=== PATIENT | male | born 1995 | race Two or more races ===

== ENCOUNTER 2025-01-30 16:58 | Emergency (ER) | payer MEDICAID, SELFPAY ==
[2025-01-30 16:59] VITALS: BMI 29.8
--- NOTE | 2025-01-30 17:18 | XR_ITS ---
Examination: PA lateral chest 2 views TECHNIQUE: Upright PA and lateral chest 2 views Date and time: January 30, 2025 1732 hours INDICATIONS: Left-sided chest pain beginning a days ago. FINDINGS: Normal heart size. Lungs are clear. The osseous structures are intact. IMPRESSION: No active disease.
--- NOTE | 2025-01-30 17:18 | EKG_ITS ---
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
--- NOTE | 2025-01-30 17:19 | PD.EDRME ---
Rapid Medical Screening Exam [facility] Arrival date/time: 01/30/25 16:58 29-year-old male with no known medical history presents to the emergency room with a chief complaint of sternal chest pain and palpitations that have been going on for the last 2 weeks but in the last 2 days have progressively gotten worse I have greeted and performed a focused initial assessment of this patient. A comprehensive ED assessment and evaluation of the patient, analysis of all test results, and completion of the medical decision making process will be conducted by additional ED providers. Chief Complaint: Chest Pain Vital signs reviewed by provider: Yes
[2025-01-30 17:25] VITALS: BP 124/81; PULSE 82; RESP 17; TEMP 37.3; O2SAT 98
[2025-01-30 18:20] LABS: Collection Type, Urine Clean Catch
[2025-01-30 18:24] LABS: Basophils # (Auto) 0.0 Thou/mm3 (0.0-0.2); Basophils % (Auto) 1 % (0-2.5); Eosinophils # (Auto) 0.4 Thou/mm3 (0.0-0.5); Eosinophils % (Auto) 5 % (0-10); Hematocrit 41.4 % (41.0-53.0); Hemoglobin 14.1 g/dL (13.5-16.0); Immature Granulocytes Auto 0.02 Thou/mm3 (0.00-0.00); Lymphocytes # (Auto) 2.0 Thou/mm3 (1.0-4.8); Lymphocytes % (Auto) 25 % (10-50); Mean Corpuscular HGB Conc 34.1 g/dl (31.0-37.0); Mean Corpuscular Hemoglobin 30.7 pg (25.0-35.0); Mean Corpuscular Volume 90 fL (80-100); Monocytes # (Auto) 0.6 Thou/mm3 (0.0-0.8); Monocytes % (Auto) 8 % (0-12); Neutrophils # (Auto) 4.9 Thou/mm3 (1.8-7.7); Neutrophils % (Auto) 61 % (37-80); Nucleated Red Blood Cell # 0.00 Thou/mm3 (0.00-0.00); Nucleated Red Blood Cell % 0 /100 WBC (0); Platelet Count 199 Thou/mm3 (140-440); RDW Standard Deviation 39.3 fL (35.1-43.9); Red Blood Count 4.59 Miln/mm3 (4.50-5.90); White Blood Count 8.0 Thou/mm3 (3.8-10.6)
[2025-01-30 18:29] LABS: Bilirubin,Urine Negative (Negative); Blood,Urine Negative (Negative); Clarity,Urine Clear (Clear/Hazy); Color,Urine Lt-Yellow (Lt Yel-Yel); Glucose, Urine Negative (Negative); Ketones,Urine Negative (Negative); Leukocyte Esterase,Urine Negative (Negative); Nitrite,Urine Negative (Negative); PH,Urine 6.0 (5.0-7.0); Protein,Urine Negative (Neg - Trace); RBC,Urine 5 /hpf (0-3); Specific Gravity,Urine 1.025 (1.001-1.035); Squamous Epithelial Cell,Urine < 1 /hpf (0-5); Urobilinogen,Urine Negative mg/dL (0.0-1.0); WBC,Urine < 1 /hpf (0-5)
[2025-01-30 18:35] LABS: Amphetamine/Methamp Scrn,U Negative (Negative); Barbiturate Screen,Urine Negative (Negative); Benzodiazepines Screen,Urine Negative (Negative); Benzoylecgonine Screen, Ur Negative (Negative); Fentanyl Screen,Urine Negative (Negative); Opiate Screen,Urine Negative (Negative); THC Screen,Urine Negative (Negative)
[2025-01-30 18:49] LABS: B-Type Natriuretic Peptide < 20 pg/mL (0-100)
[2025-01-30 18:50] LABS: Alanine Aminotransferase 26 U/L (10-49); Albumin, Serum 4.8 gm/dL (3.5-5.0); Albumin/Globulin Ratio 1.8 (1.2-2.2); Alkaline Phosphatase 76 U/L (46-116); Anion Gap 9 (7-16); Aspartate Amino Transferase 22 U/L (0-34); BUN/Creatinine Ratio 15 Ratio (12-20); Bilirubin,Total 0.4 mg/dL (0.3-1.2); Blood Urea Nitrogen 15 mg/dL (9-23); Calcium 9.5 mg/dL (8.3-10.6); Calcium (Corrected) 9.5 mg/dL (8.5-10.1); Carbon Dioxide 28.0 mMol/L (20.0-31.0); Chloride 105 mMol/L (98-107); Creatinine (Component) 1.0 mg/dL (0.6-1.3); Estimated Creatinine Clearance 120.8 mL/min (>60); Globulin 2.6 gm/dL (2.3-3.5); Glucose 99 mg/dL (74-106); Osmolality,Calculated 283 (275-295); Potassium 4.4 mMol/L (3.4-5.1); Sodium 142 mMol/L (136-145); Total Protein 7.4 gm/dL (5.7-8.2); Troponin I < 0.020 ng/mL (0.0-0.045); eGFR > 60 See Note
--- NOTE | 2025-01-30 19:07 | PD.EDCHEST ---
ED Chest Pain RME/HPI General Chief Complaint: Chest Pain Stated Complaint: CHEST PAIN TO LEFT SIDE RADIATING TO BACK Time Seen by Provider: 01/30/25 18:19 Arrival date/time: 01/30/25 16:58 RME / HPI RME / HPI narrative: 01/30/25 16:58 29-year-old male with no known medical history presents to the emergency room with a chief complaint of sternal chest pain and palpitations that have been going on for the last 2 weeks but in the last 2 days have progressively gotten worse I have greeted and performed a focused initial assessment of this patient. A comprehensive ED assessment and evaluation of the patient, analysis of all test results, and completion of the medical decision making process will be conducted by additional ED providers. This section includes all my notes and documentations, including HPI, PE, and ED course. Zach Park MD HPI: 29 y/o male presents c/o left-sided chest pain that radiates to the back x 8 days. Denies pain with deep inhalation, but endorses pain with movement. No other complaints. ROS: All negative except as documented in HPI. Physical Exam: General: Alert and oriented. No acute distress when remaining still. Eyes: Conjunctivae and lids clear. ENT: No nasal congestion. Neck: Supple. Heart: RRR. Lungs: No respiratory distress. Good air movement. No rhonchi, wheezing, rales. Chest: Palpation of the left torso reproduces his pain. Abdomen: Soft and nontender. Skin: Warm and dry. Neuro: Alert and oriented X 3. I reviewed all diagnostic test results: My interpretation of the EKG is sinus rhythm with no acute ST?T changes. My interpretation of the chest x-ray is: NAD. Blood tests and urine tests are unremarkable. At this point, diagnoses include: Chest wall pain. Recommended supportive care. Based on my best medical judgment, made decision no further evaluation or treatment indicated at this time. Patient understands and agrees to the discharge instructions customized and printed, see below. Discharge instructions from Dr. Park: 1. After extensive evaluation, there is no life-threatening condition.? Such as heart attack or pneumothorax (collapsed lung). 2. Your pain is originating from the chest wall and not from an internal organ.? The chest wall has many joints and muscles between the ribs, so sprains and strains are common.?? 3. Apply ice or heat if helpful.? Tylenol/ibuprofen as needed. For good hydration, increase oral fluid and maintain clear urine. If dark or yellow, increase oral fluid. 4. See a private doctor on 02/03/2025. To make sure there is no serious underlying heart condition, ask to help you get more tests for your heart that cannot be done here in the ER.? Such as Holter Monitor (cardiac monitoring at home from a day to even a month), heart stress test (on treadmill or with medication), echocardiogram (imaging of your heart structures), heart catherization (checking for blockages in your heart arteries), and a referral to see a [employer].? 5. Seek immediate medical care with worsening or with any concerns.?? Zach Park MD Related Data Allergies Allergy/AdvReac Type Severity Reaction Status Date / Time No Known Allergies Allergy Verified 01/30/25 17:02 Review of Systems Review of Systems Systems Reviewed: All systems reviewed, normal except as documented Past Medical History Social History SMOKING STATUS: Former smoker ED Exam Narrative Physical exam: Refer to HPI Course Course Course Narrative: CXR is ordered for determining the etiology of shortness of breath. Quality Measures none Orders Category Date Time Status EKG (ED ONLY) *Do not use* NOW Care 01/30/25 17:18 Completed EKG (ED Only) Stat Exams 01/30/25 17:18 Draft XR chest 2V Stat Exams 01/30/25 17:18 Completed B-Type Natriuretic Peptide Stat Lab 01/30/25 17:54 Completed CBC Stat Lab 01/30/25 17:54 Completed Comprehensive Metabolic Panel Stat Lab 01/30/25 17:54 Completed Drug Screen,Urine Stat Lab 01/30/25 18:03 Completed Troponin I Stat Lab 01/30/25 17:54 Completed Urinalysis Stat Lab 01/30/25 18:03 Completed Vital Signs Vital signs: Vital Signs Temperature 99.1 F 01/30/25 17:25 Pulse Rate 82 01/30/25 17:25 Respiratory Rate 17 01/30/25 17:25 Blood Pressure 124/81 01/30/25 17:25 Pulse Oximetry (%) 98 01/30/25 17:25 Oxygen Delivery Method Room Air 01/30/25 17:25 Chest Pain MDM Narrative MDM Narrative:: Scribe Attestation: I, Patricia Garcia, am scribing for and in the presence of Dr. Park. Provider Notation: Although this document has been carefully reviewed, there may still be some phonetic and other typographical errors.? These errors are purely grammatical due to imperfections in the software program and should not be construed in any way to? compromise the substance of the patient's medical care during this visit. Patient data External records reviewed:: [facility] previous records (No prior ED records available for review.) Clinical information provided by:: patient Social determinants that could affect healthcare access:: none Patient has the following chronic illnesses:: None reported How is presenting disease/condition affected by chronic disease/condition?: no chronic disease Evaluation data The following diagnostics were reviewed and interpreted by me:: lab results, radiology exam(s) and EKG tracing(s) Lab and/or radiology exams considered but not ordered:: None Interpretation Summary: I reviewed all diagnostic test results: My interpretation of the EKG is sinus rhythm with no acute ST?T changes. My interpretation of the chest x-ray is: NAD. Blood tests and urine tests are unremarkable. Medications / Prescriptions Medications or Prescriptions considered but not ordered:: None Medication administrations:: None Consultations Consultation(s) initiated? (list below): No Diagnosis Chest Pain Differential Diagnosis: fracture of rib, pneumothorax, stable angina, unstable angina pectoris, atypical chest pain, st elevation myocardial infarction, costochondritis, chest pain and biliary colic Most likely diagnosis given after review of the tests above:: Chest wall pain Admission Indicated Admission indicated?: not indicated Explain why admission is indicated or not indicated:: With no condition needing emergent intervention, there was no indication for admission. Admission Request Was there a request for admission?: No Disposition Plan Disposition Plan: Discharge Discharge Attestation Discharge Attestation: The patient and all family members were given an opportunity to ask questions and understood the discharge instructions. Discharge instructions specifically effects, indications for sooner follow up or return to the emergency department, and the expected course of current diagnosis. Patient condition: Stable Discharge Plan Plan Patient Disposition: HOME (Self Care) Prescriptions/Referrals Referrals: No Primary/Family,Physician [Primary Care Provider] - In 1 week Problem List Clinical Impression: Chest wall pain Patient/Caregiver Discharge Instructions Discharge Activity: activity as tolerated Education Materials: ED Chest Wall Strain (Child) Additional Instructions: Discharge instructions from Dr. Park: 1. After extensive evaluation, there is no life-threatening condition.? Such as heart attack or pneumothorax (collapsed lung). 2. Your pain is originating from the chest wall and not from an internal organ.? The chest wall has many joints and muscles between the ribs, so sprains and strains are common.?? 3. Apply ice or heat if helpful.? Tylenol/ibuprofen as needed. For good hydration, increase oral fluid and maintain clear urine. If dark or yellow, increase oral fluid. 4. See a private doctor on 02/03/2025. To make sure there is no serious underlying heart condition, ask to help you get more tests for your heart that cannot be done here in the ER.? Such as Holter Monitor (cardiac monitoring at home from a day to even a month), heart stress test (on treadmill or with medication), echocardiogram (imaging of your heart structures), heart catherization (checking for blockages in your heart arteries), and a referral to see a [employer].? 5. Seek immediate medical care with worsening or with any concerns.?? Instrucciones de ciaran del Dr. Park: 1. Tras lolita evaluaci?n exhaustiva, no se observa ninguna afecci?n que ponga en peligro la brandyn, malou un ataque card?aco o un neumot?rax (colapso pulmonar). 2. El dolor se origina en la pared tor?cica y no en un ?rgano interno. La pared tor?cica tiene muchas articulaciones y m?sculos entre las costillas, por lo que los esguinces y las distensiones son comunes. 3. Aplique hielo o calor si le resulta ?til. Tylenol/ibuprofeno seg?n sea necesario. Para lolita buena hidrataci?n, aumente la ingesta de l?quidos y mantenga la orina giulia. Si la orina es oscura o amarilla, aumente la ingesta de l?quidos. 4. Consulte con un m?dico particular el 02/03/2025. Para asegurarse de que no haya lolita afecci?n card?acacia subyacente grave, solicite ayuda para realizar m?s pruebas card?acas que no se pueden realizar en urgencias. Malou un monitor Holter (monitoreo card?aco en casa desde un d?a hasta un mes), lolita prueba de esfuerzo card?aco (en cinta o con medicaci?n), un ecocardiograma (im?genes de las estructuras del coraz?n), un cateterismo card?aco (para comprobar si hay obstrucciones en las arterias del coraz?n) y lolita derivaci?n a un cardi?logo. 5. Busque atenci?n m?dica inmediata si [place] estado empeora o tiene alguna inquietud. Print Language: Norwegian Stand Alone Forms: [employer]a Award Info., Patient Portal Info Letter
== END 2025-01-30 19:30 | disposition home or self-care (01) ==
PROVIDERS: Nurse Practitioner Family; Emergency Provider Emergency Medicine
DX: R07.89 Other chest pain (principal)
CPT/HCPCS: 36415; 71046; 80053; 80307; 81001; 83880; 84484; 85025; 93005; 99283

== ENCOUNTER 2025-02-02 11:33 | Emergency (ER) | payer MEDICAID, SELFPAY ==
[2025-02-02 11:58] VITALS: BP 143/73; PULSE 71; RESP 19; TEMP 37.1; O2SAT 99; BMI 24.8
--- NOTE | 2025-02-02 12:08 | XR_ITS ---
Examination: Abdomen AP single view Technique: AP portable supine abdomen, single view Exam date and time: February 02, 2025, 12:33 PM Indications: Constipation beginning several days ago. Findings: Moderate to large amounts of stool throughout the colon. No obstruction. No free air. Intact osseous structures. Impression: Moderate to large amounts of stool throughout the colon.
--- NOTE | 2025-02-02 12:09 | PD.EDADULT ---
ED General RME/HPI General Chief complaint: General Adult/Misc Complain Stated complaint: CONSTIPATION Time Seen by Provider: 02/02/25 11:54 Arrival date/time: 02/02/25 11:33 This is a 29-year-old male that comes in with complaints of constipation on and off for several months. Patient has seen his primary doctor for this reason already. Patient states that its every once in a while have a little bit of bleeding. Patient's been told he has hemorrhoids. Patient has taken stool softeners but states it is does not always help. Patient has no other complaints. No abdominal pain no nausea vomiting no diarrhea. Related Data Previous Rx's ?Medication ?Instructions ?Recorded polyethylene glycol 3350 17 gram 17 g PO QDAY #30 ea 02/02/25 oral powder packet (Miralax) sennosides 8.6 mg-docusate sodium 1 tab-cap PO BID #30 tabs 02/02/25 50 mg tablet (Senokot-S) Allergies Allergy/AdvReac Type Severity Reaction Status Date / Time No Known Allergies Allergy Verified 02/02/25 11:36 Course Orders Category Date Time Status KUB [XR abdomen 1V] Stat Exams 02/02/25 12:08 Completed Lactulose Syrup [Enulose Syrup] Med 02/02/25 14:47 Discontinued 10 gm PO X1 ONE Magnesium Citrate Liqd [Citrate of Magnesia Liqd] Med 02/02/25 14:47 Discontinued 300 ml PO X1 ONE Vital Signs Vital signs: Vital Signs Temperature 98.8 F 02/02/25 11:58 Pulse Rate 71 02/02/25 11:58 Respiratory Rate 19 02/02/25 11:58 Blood Pressure 143/73 H 02/02/25 11:58 Pulse Oximetry (%) 99 02/02/25 11:58 Oxygen Delivery Method Room Air 02/02/25 11:58 Discharge Plan Plan Patient Disposition: HOME (Self Care) Patient condition on transfer: Stable Prescriptions/Referrals Prescriptions/Med Rec: New polyethylene glycol 3350 [Miralax] 17 gram powder in packet 17 g PO QDAY Qty: 30 0RF sennosides-docusate sodium [Senokot-S] 8.6-50 mg tablet 1 tab-cap PO BID Qty: 30 0RF Referrals: Andre Stanley MD [Primary Care Provider] - In 1 week Problem List Clinical Impression: Constipation Patient/Caregiver Discharge Instructions Discharge Activity: activity as tolerated Education Materials: ED Constipation (Adult) Additional Instructions: Max un rom con [place] medico de cabecera en las proximas 24-48 horas. Regrese a la hema de emergencias si hay evidencia de que los signos o sintomas empeoran. Print Language: Colombian Stand Alone Forms: Chela Award Info., Patient Portal Info Letter PA/RED CROSS EXECUTIVE DIRECTOR Supervising Physician PA/RED CROSS EXECUTIVE DIRECTOR Supervising Physician: chente WOODS Medication Administration(s) Medication Administration History Discontinued Medications Lactulose (Lactulose Syrup 20 Gm/30 Ml Udc) 10 gm PO X1 ONE; Protocol Stop: 02/02/25 14:48 Magnesium Citrate (Magnesium Citrate 300 Ml Btl) 300 ml PO X1 ONE Stop: 02/02/25 14:48
[2025-02-02 14:33] VITALS: BP 136/89; PULSE 74; RESP 17; TEMP 37.3; O2SAT 98
[2025-02-02] MEDS: LACTULOSE SYRUP 20 GM/30 ML UDC 10 GM PO (14:56)
[2025-02-02] MEDS: MAGNESIUM CITRATE 300 ML BTL PO (14:56)
== END 2025-02-02 15:02 | disposition home or self-care (01) ==
PROVIDERS: Emergency Provider Emergency Medicine; PCP Family Medicine; Referring Provider Emergency Medicine
DX: K59.00 Constipation, unspecified (principal)
CPT/HCPCS: 74018; 99283; A9270